=== PATIENT | male | born 1960 | race Caucasian/White ===

== ENCOUNTER 2017-10-11 23:08 | Emergency (ER) | payer OTHER ==
[2017-10-11] MEDS ORDERED: ALBUTEROL 3 ML DEYVIAL IH ONE (23:26)
--- NOTE | 2017-10-11 23:27 | EDPHY ---
H & P Stated Complaint: cough, fever since tuesday Time Seen by Provider: 10/11/17 23:18 HPI/ROS: Chief Complaint: Cough HPI: 57-year-old male presenting with 2 weeks of cough which has been worsening. He has been having episodes of coughing then followed by vomiting. He was seen at urgent care 4 days ago and started on Mucinex. He was seen again yesterday and was placed on azithromycin. Patient states that his symptoms are not improving. He has had some subjective fevers and chills at home. Some mild sore throat, headache, some bilateral ear pain. He is having some shortness of breath with exertion. No leg pain or swelling. He has a similar episode several years ago when his throat was swelling and he was admitted to this hospital. He is also complaining of nasal congestion. ROS: 10 point Review of Systems is negative except as noted in the HPI. PMH: Denies Social History: No smoking, no alcohol, no recreational drug use Family History: non-contributory Physical Exam: Gen: Awake, Alert, No Distress HEENT: Nose: no rhinorrhea Eyes: PERRLA, EOMI Mouth: Moist mucosa Neck: Supple, no JVD Chest: nontender, no focal rales or rhonchi, mild diffuse expiratory wheeze with forced expiration Heart: S1, S2 normal, no murmur Abd: Soft, non-tender, no guarding Back: no CVA tenderness, no midline tenderness Ext: no edema, non-tender Skin: no rash Neuro: CN II-XII intact, Sensation grossly intact, Strength 5/5 in bilateral upper and lower extremities - Personal History Current Tetanus/Diphtheria Vaccine: No - Medical/Surgical History Hx Asthma: No Hx Chronic Respiratory Disease: No Hx Diabetes: No Hx Cardiac Disease: No Hx Renal Disease: No Hx Cirrhosis: No Hx Alcoholism: No Hx HIV/AIDS: No Hx Splenectomy or Spleen Trauma: No Other PMH: KNEE SURGERY,SINUS SURG. BPH , MGRAINES - Social History Smoking Status: Never smoked Constitutional: Initial Vital Signs Temperature (C) 37.1 C 10/11/17 23:10 Heart Rate 70 10/11/17 23:10 Respiratory Rate 18 10/11/17 23:10 Blood Pressure 133/103 H 10/11/17 23:10 O2 Sat (%) 95 10/11/17 23:10 O2 Delivery Mode Room Air Allergies/Adverse Reactions: Penicillins Allergy (Verified 10/11/17 23:13) Home Medications: Medication Instructions Recorded Rizatriptan Benzoate [Maxalt 10mg] 10 mg PO DAILY PRN 07/14/14 Tamsulosin HCl [Flomax 0.4 MG (*)] 0.4 mg PO DAILY 07/14/14 Acetaminophen [Tylenol 325mg (*)] 650 mg PO Q6 PRN 07/15/14 Ibuprofen [Motrin (*)] 200 mg PO DAILY PRN 07/15/14 Clindamycin HCl [Clindamycin] 300 mg PO QID 8 Days cap 07/17/14 LORazepam [Ativan (*)] 0.5 - 1 mg PO Q6 PRN #10 tab 07/17/14 Ondansetron Odt [Zofran Odt 4 mg 4 mg PO Q4 PRN #20 tab 07/17/14 (*)] Pantoprazole Sodium [Protonix 40mg 40 mg PO DAILY #30 tab 07/17/14 (*)] oxyCODONE/APAP 5/325 [Percocet 1 - 2 tab PO Q4H PRN #20 tab 07/17/14 5/325 (RX)] predniSONE 5 mg PO DAILY #0 tab 07/17/14 Fluticasone Nasal [Flonase Nasal 2 sprays NASAL DAILY #1 mdi 10/12/17 [place] (RX)] Medical Decision Making ED Course/Re-evaluation: 57-year-old male with symptoms consistent with bronchitis. No focal rales or rhonchi. His oxygen saturations [id number] percent on room air. He is afebrile. He does have some diffuse expiratory wheezing. Will get a neb and reassess. This significant change with neb. Patient's containing primarily of congestion and sensation of sputum in his throat. Negative symptoms are more consistent with a postnasal drip with sinusitis or rhinitis picture. I recommended Flonase. Will continue the antibiotic. Does not have any sinus tenderness to percussion. He is afebrile. He has has normal oxygen saturations. His lungs are clear. Will discharge with role for all for outpatient follow-up, return for any concerns. Also encouraged him to drink more fluids. He needs to drink at least 8, 8 oz glasses of water a day. - Data Points Medications Given: Discontinued Medications Albuterol (Proventil Neb) 3 ml IH EDNOW ONE Stop: 10/11/17 23:27 Last Admin: 10/11/17 23:37 Dose: 3 ml Departure - Departure Disposition: Home, Routine, Self-Care Clinical Impression: Cough, Sinusitis Condition: Good Instructions: Sinusitis (ED) Additional Instructions: Make sure to drink at least 8, 8 oz glasses of water a day. You may use [id number] decongestants such as Tylenol cold and Sinus or any other generic brands. Begin taking Flonase 2 sprays once a day. Follow up with primary care physician in 4-5 days for re-evaluation. Return to the emergency department for worsening cough, fevers, chills, uncontrolled nausea or vomiting, or any other concerns. Referrals: NONE *PRIMARY CARE P,. [Primary Care Provider] - As per Instructions Prescriptions: Fluticasone Nasal [Flonase Nasal [place] (RX)] 2 sprays NASAL DAILY #1 mdi
[2017-10-12 00:20] VITALS: BP 141/86
== END 2017-10-12 00:19 | disposition home or self-care (01) ==
DX: J32.9 Chronic sinusitis, unspecified (principal)
CPT/HCPCS: J7613